=== PATIENT | male | born 1955 | race Caucasian/White ===

== ENCOUNTER → 2018-02-01 | Outpatient (CLI) | payer OTHER ==
[~2018-02-01] MED LIST: LIDOCAINE 1% 5ML-MPF INJ ONE; LIDOCAINE HCL 1% LOCAL INJ 20 ML VIAL ONE
[2018-02-01 13:24] LABS: INR 0.94; PROTHROMBIN TIME 13.4 seconds (11.9-14.5)
[2018-02-01 13:25] LABS: PARTIAL THROMBOPLASTIN TIME 27.4 seconds (23.8-35.5)
--- NOTE | 2018-02-01 15:51 | Diagnostic Imaging Report ---
EXAMINATION: Fluoroscopically-guided lumbar puncture HISTORY: Hereditary idiopathic neuropathy per requisition. Proximal leg weakness and pain. TECHNIQUE: medication: None. anesthesia: 1% lidocaine, 5 cc needle: 22 gauge x 3.5 inch spinal fluoro time: 1.3 minutes DAP: 59.9 microGy-m2 PROCEDURE: After giving informed consent, the patient lay prone on the examination table. The back was prepped and draped in the usual sterile manner, and then 1% lidocaine was infiltrated in the skin. The spinal needle was advanced through the L4-L5 interspace via a left sided approach until CSF was obtained. Pressure obtained was 11 cm H20. Approximately 10 mL of fluid was removed and sent to the laboratory for tests ordered by the referring physician. The patient was transferred to the floor in stable condition. FINDINGS: Pressure measurement 11 cm H20 CSF: Clear initially, subsequently slightly pinkish tinged clear fluid. IMPRESSION: Fluoroscopically-guided lumbar puncture via a left L4-L5 approach. Signed by: Dr. Avinash Molina MD on 02/01/2018 3:47 PM
[2018-02-01 16:21] LABS: TOTAL PROTEIN,CSF 27.9 mg/dL (15-40)
[2018-02-01 16:56] LABS: APPEARANCE,CSF CLEAR (CLEAR); COLOR,CSF COLORLESS (COLORLESS); TUBE NUMBER 3; WHITE BLOOD CELL,CSF 0 cells/uL (0-5)
[2018-02-03 12:14] LABS: IGG/ALB RATIO CSF 0.19 (0.00-0.25)
[2018-02-04 05:19] LABS: CSF/SERUM ALBUMIN INDEX 4 (0-8)
== END ==
LOC: DX 12:25
PROVIDERS: ATTEND Psychiatry & Neurology Neurology
DX: G60.9 Hereditary and idiopathic neuropathy, unspecified (principal)
CPT/HCPCS: 36415; 62270; 77003; 82040; 82042; 82784 ×2; 82945; 83916; 84157; 84165; 85049; 85610; 85730; 89051; J2001